=== PATIENT | female | born 1990 ===

== ENCOUNTER 2024-06-28 02:22 | Outpatient (CLI) | payer OTHER, SELFPAY ==
[2024-06-28 11:41] LABS: Abs Immature Grans 0.04 10^3/uL (0.0-0.06); Absolute Basophil Count 0.02 10^3/uL (0.0-0.2); Absolute Eosinophil Count 0.04 10^3/uL (0.0-0.7); Absolute Lymphocyte Count 1.42 10^3/uL (1.2-3.4); Absolute Monocyte Count 0.41 10^3/uL (0.1-0.8); Absolute Neutrophil Count 6.34 10^3/uL (1.2-6.7); Basophils % 0.2 %; Eosinophils % 0.5 %; HCT 32.9 % (36.0-46.0); HGB 11.3 g/dL (11.2-15.7); Immature Grans % 0.5 %; Lymphocytes % 17.2 %; MCH 30.5 pg (27.0-33.0); MCHC 34.3 % (32.0-36.0); MCV 89 fL (80-95); MPV 9.4 fL (8.0-11.0); Neutrophils % 76.6 %; Platelet Count 319 10^3/uL (130-400); RDW 12.1 % (11.7-14.6); RDW-SD 39.1 fL; WBC 8.27 10^3/uL (4.4-10.8)
[2024-06-28 11:55] LABS: Panorama Kit Sent via Fed Ex
[2024-06-28 13:07] LABS: TSH (W/Ref FT4) 1.44 uIU/mL (0.36-3.74)
[2024-06-29 09:35] LABS: HIV-1/2 Ag & Ab Screen Negative (Negative)
[2024-06-29 09:45] LABS: Varicella IgG Antibody Positive (See Note)
[2024-06-29 09:47] LABS: Hepatitis B Surface Ag Negative (Negative)
[2024-06-29 09:49] LABS: Rubella IgG Ab (UVM) Negative (See Note)
[2024-06-29 10:34] LABS: Hepatitis C Ab w Rflx HCV PCR Negative (Negative)
[2024-06-30 21:06] LABS: Syphilis IgG w/Reflex Nonreactive (Nonreactive)
[2024-07-03 03:57] LABS: Specimen WB Whole Blood
[2024-07-08 16:50] LABS: Result Summary NEGATIVE; Specimen WB Whole Blood
== END 2024-06-28 02:23 | disposition home or self-care (01) ==
LOC: LBO 02:22
PROVIDERS: Advanced Practice Midwife; Visit Provider Advanced Practice Midwife
DX: Z34.91 Encounter for supervision of normal pregnancy, unspecified, first trimester (principal); F32.A Depression, unspecified
CPT/HCPCS: 36415; 81220; 81222; 81329; 86787; 86803; 86850; 86900; 86901; 87340; 87389; 84443; 85025; 86762; 86780

== ENCOUNTER 2024-06-28 10:41 | Outpatient (REF) | payer OTHER, SELFPAY ==
--- NOTE | 2024-06-28 10:00 | PAPFT_PTH ---
PATIENT: Vicki Goss LOC: [facility] U#:[id number] AGE/SX: 33/F ROOM: RE06/28/[address]: Minnie Carrero : 1990 BED: DIS: 06/28/2024 SPEC #: [id number] RECD: 06/28/24 13:20 STATUS: IONA REQ #: [id number] GRACY: 06/28/24 10:[address]: Minnie Carrero DEPT: [facility] Cytology RECD BY: Lanie Jacques ENTERED: 06/28/24 13:20 SP TYPE: PAPFT OTHR DR: Unknown,Unknown Tissues: 1 - CX/ENDOCX FOR PAP SMEARS Procedures: PAP THIN PREP/UVM Screening HPV DNA PROBE Comments: [id number] (HPV 16 & 18/45) (CHLAMYDIA/GC)
[2024-06-29 11:58] LABS: Chlamydia Result Negative (Negative); GC Result Negative (Negative)
== END 2024-06-28 10:42 | disposition home or self-care (01) ==
LOC: LBN 10:41
PROVIDERS: Visit Provider Advanced Practice Midwife
DX: Z34.91 Encounter for supervision of normal pregnancy, unspecified, first trimester (principal); Z3A.13 13 weeks gestation of pregnancy
CPT/HCPCS: 87491; 87591; 88142; 87086; 87624

== ENCOUNTER 2024-10-14 03:49 | Outpatient (CLI) | payer OTHER, SELFPAY ==
[2024-10-14 10:30] LABS: HCT 38.2 % (36.0-46.0); HGB 12.5 g/dL (11.2-15.7); MCH 30.5 pg (27.0-33.0); MCHC 32.7 % (32.0-36.0); MCV 93 fL (80-95); MPV 9.8 fL (8.0-11.0); Platelet Count 320 10^3/uL (130-400); RDW 12.2 % (11.7-14.6); WBC 10.37 10^3/uL (4.4-10.8)
[2024-10-14 10:46] LABS: Glucose,1 Hr (Glucola) 130 mg/dL (80-140)
== END 2024-10-14 03:50 | disposition home or self-care (01) ==
PROVIDERS: Visit Provider Advanced Practice Midwife
DX: Z34.93 Encounter for supervision of normal pregnancy, unspecified, third trimester (principal)
CPT/HCPCS: 36415; 82950; 85027

== ENCOUNTER 2024-12-09 10:10 | Outpatient (REF) | payer OTHER, SELFPAY | END 2024-12-09 10:11 | disposition home or self-care (01) | LOC: LBN 10:10 | PROVIDERS: Visit Provider Advanced Practice Midwife | DX: Z34.93 Encounter for supervision of normal pregnancy, unspecified, third trimester (principal) | CPT/HCPCS: 87081 ==

== ENCOUNTER 2024-12-10 06:37 | Outpatient (CLI) | payer OTHER, SELFPAY ==
[2024-12-10 07:47] VITALS: BP 111/72; PULSE 81; TEMP 36.5
[2024-12-10 07:56] VITALS: BP 111/72; PULSE 81
[2024-12-10 08:19] LABS: ROM Plus Positive
--- NOTE | 2024-12-10 09:45 | W.OBNST ---
Date of service: 12/10/24 Time of Service: 09:45 NST Evaluation Reason for NST Reasons for Nonstress Test: OTHER, SEE COMMENT Reason for NST Other: Rule out rupture of membranes Gestational Age Gestational Age in Weeks and Days: 37 Weeks and 0Days Test and Monitor Explained Test/Monitor Explained: Test Explained and Monitor Explained Vital Signs Blood Pressure: 111/72 Pulse: 81 Temperature: 97.7 F Urine Results Urine Protein: Negative Urine Ketones: Negative Urine Glucose: Negative Urine Blood: Negative NST Information Time on Monitor: 07:47 Time off Monitor: 08:38 NST Interventions: None Contraction Frequency: 3-7 NST Evaluation Patient States Movement: Present FHR Baseline: 140 Variability: Moderate 6-25 bpm Accelerations: 15x15 Decelerations: None NST Results: Reactive Note Ultrasound Done: N/A. NST Note Note: Vicki is a at 37wks who presents for evaluation of leaking of fluid which started last evening. No active gushing of fluid, no recent sex, no active bleeding and +FM. Reactive NST with irregular contraction which are mildly painful to Vicki. SSE done, results documented below. Finding support diagnosis of ROM, clear fluid. Cervix appears to be long and closed. I reviewed recommendations for admission and initiation of antiobiotics for GBS unknown status. I reviewed the risks and benefits of antibiotic treatment as well as risks to declination and need for observation x 48hours. We discussed a possible plan of care consistent of expectant management for 12-24 hours and the possibility augmentation if contraction frequency and intensity diminish over time. NST Reviewed and Verified by: Hayley Rivers Specimen Collection Test Type of Specimen Specimen Type: Vaginal Text: ROM Plus Positive, Nitrizine Positive, Ferning positive, pooling negative.
[2024-12-10 09:54] VITALS: BP 111/72; PULSE 81; TEMP 36.5
[2024-12-10 10:50] VITALS: BP 118/71; PULSE 88; RESP 16; TEMP 36.5
== END 2024-12-10 12:07 ==
LOC: BCD 06:38 → OBS 07:11
PROVIDERS: Visit Provider Advanced Practice Midwife
DX: O42.02 Full-term premature rupture of membranes, onset of labor within 24 hours of rupture (principal); Z3A.37 37 weeks gestation of pregnancy
CPT/HCPCS: 84112; 59025

== ENCOUNTER 2024-12-10 12:46 | Inpatient (IN) | payer OTHER, SELFPAY ==
[2024-12-10] VITALS (12 sets, daily range): BP systolic 111–126; BP diastolic 62–79; PULSE 83–104; RESP 16; TEMP 36.5–37; O2SAT 90–98
--- NOTE | 2024-12-10 12:49 | HPE_ITS ---
Date of service: 12/10/24 Time of Service: 12:49 Assessment and Plan Assessment and plan (1) Rupture of membranes with delay of delivery: Status: Acute Assessment and plan: A: 37wk with SROM Cat 1 FHT GBS unknown, PCN ordered P:Admit to Center and routine admission labs. Comfort measures. Intermittent monitoring. Expectant Management until 0100. Nipple stimulation and movement encouraged. Delay SVE until 0100 unless clinically indicated. OB-HPI Labor/Delivery History of Present Illness Reason for Visit: Labor Chief Complaint: Suspected Rupture of Membranes , Associated Signs and Symptoms of Suspected ROM: leaking of fluid. JUDIT Calculator Estimated Delivery Date Method Current WG Current Estimate 12/31/24 LMP (Certain) 37w 0d Other Estimates 12/27/24 Ultrasound #1 37w 4d History of Present Expected Delivery Route/Plan - CNM FOB/boyfriend - Ted Escobar (2 children, ages 4 & 7 from previous relationship) BB yes to circ supports will be FOB & friend/market specialist Zully Interested in waterbirth, dim lights, hypnobirthing, prefers no epidural Rubella non immune, offer vaccine Specific Issues/Plan 1. cfDNA low risk male, SMA negative, CF- neg, Declines AFP 2. History of anxiety- therapist in the past 3. 5-Ps neg Narrative: Vicki is a at 37wk who presents with leaking of fluid since 0100. She reports mild pink-tinged discharge, no recent sex, active movement. Rupture of membranes was confirmed with ROM plus test and positive ferning. She is expecting a Baby Boy and is supporting by boyfrienhiren Jean and plans to have a market specialist present. Her is significant for rubella-non immune status. We reviewed reasons for admission in addition to GBS prophylaxis for unknown status because her testing is pending. We discussed the standard of care and medical indication for augmentation of labor with SROM prior to labor and after informed consent patient and FOB verbalize a plan for expectant management x 24hours. At 0100 on 12/11/24 if patient is not in labor then they will be open to a discussion about augmentation. In the meantime we discussed nipple stimulation and walking to help encourage labor. Informed Consent Informed Consent: Augmentation of Labor, Induction of Labor, Regional Anesthesia and Risk,Benefits,Alternatives Discussed Review of Systems All systems reviewed & are unremarkable except as noted in HPI and below PFSH All Active Problems (Updated 12/10/24 @ 12:59 by Hayley Rivers CNM) Rupture of membranes with delay of delivery (Acute) Rubella non-immune status, antepartum (Acute) (Acute) History of abnormal cervical Pap smear (Acute) Prior low PINKY with positive high risk HPV. Most recently, no evidence of HPV virus. Medical History Anxiety Depression Surgical History H/O adenoidectomy History of tonsillectomy Family History (Updated 08/13/24 @ 11:16 by Minnie Carrero CNM) Maternal Grandmother Breast cancer Father Hypertension Maternal Grandfather Diabetes Heart disease Paternal Grandmother Hyperlipidemia Paternal Grandfather Stroke Social History Smoking/Tobacco Use Status: Never Smoking risk assessment performed?: Yes Alcohol Intake: never Substance use type: does not use Housing: house Female Reproductive History Menstrual Age of Menarche: 15 control method: none History History 1 Para 0 Hx # Term Pregnancies 0 Multiple births 0 Hx # Pregnancies 0 Ectopic pregnancies 0 AB induced 0 Hx Number of Living Children 0 AB spontaneous 0 Meds Allergies and Home Medications Allergies Allergy/AdvReac Type Severity Reaction Status Date / Time Latex, Natural Rubber AdvReac Other (See Verified 12/09/24 09:30 Comment) Home Medications ?Medication ?Instructions ?Recorded ?Confirmed ?Type cholecalciferol (vitamin D3) 10 5,000 unit PO DAILY 10/28/24 12/10/24 History mcg/0.25 mL oral drops vits no.126-ferrous fum 2 tab PO DAILY 10/28/24 12/10/24 History 28 mg iron-folic acid 800 mcg tablet (Classic ) Exam Physical Exam Vital Signs Reviewed: Yes Constitutional Constitutional: no acute distress Detailed Labor and Delivery Exam Mcclure Score: Cervical Points Exam 0 1 2 3 Dilation Closed 1-2cm 3-4 cm 5-6cm Effacement 0-30% 40-50% 60-70% 80% Consistency Firm Medium Soft Station -3 -2 -1,0 +1,+2 Position Posterior Mid Anterior Amniotic Membrane Status: Ruptured (0100) Rupture Method: Spontaneous Amniotic Fluid: Clear Pooling: Negative Nitrazine: Positive Ferning: Present ROM Plus: Positive Monitor Mode: External Contraction Frequency(min): 3-7 Contraction Duration(sec): 50-60 Contraction Intensity: Mild Fetus A Heart Rate Baseline: 135 Monitor Accelerations: 15 X 15 Monitor Decelerations: None Variability: Moderate (6-25 BPM) Categories: Category I Est. Weight: 7 Date of Membrane Rupture: 12/10/24 Time of Membrane Rupture: 01:00 Respiratory Exam Respiratory Exam: Normal Cardiovascular Exam Cardiovascular Exam: Normal Abdominal Exam Abdominal Exam: Normal (gravid, GEORGINA) Extremities Exam Extremities Exam: Normal Neurological Exam Neurological Exam: Normal Psychiatric Exam Psychiatric Exam: Normal Results Results Group Beta Strep: Done-Result Unknown Blood Type: A+ Rubella Status: Nonimmune Varicella Immunity: Immune Risk Assessment Risk for Shoulder Dystocia Historical/Initial OB: NEGATIVE FOR: Pelvic Abnormality, Pre- BMI>30, Previous Shoulder Dystocia or Previous Macrosomia 36 Weeks: NEGATIVE FOR: Current Gestational DM, EFW>4500gms or Maternal Weight Gain>40lbs Delivery Plan @ 36wks: Risk for Pre-Eclampsia Yes, if one or more: NEGATIVE FOR: Hx Pre-E/Gest HTN, Chronic HTN, Multiple Gestation, Pre-gestational DM, Renal Disease, Systemic Lupus or APA Syndrome Yes, if 2 or more: POSITIVE FOR: Nulliparity; NEGATIVE FOR: Age>= 35 yrs, >10yr btwn pregnancies, BMI>30, ethinicty, Mother/Sister w/ Pre-E or Previous IUGR Risk for Post- Hemorrhage Initial: NEGATIVE FOR: Multiple Gestation, Previous PPH, Known Clotting Defi ciency, Grand Multiparity or Anticoagulation 36 Weeks: NEGATIVE FOR: Anemia, hgb<10, Low platelets(thrombocytopenia), Gestational HTN or Pre-E, Polyhydraminios or EFW>4500gms Counseled re: Active Management: Yes Risks Reviewed Risks Reviewed Upon Admission: Yes
[2024-12-10 13:42] LABS: HCT 36.5 % (36.0-46.0); HGB 12.5 g/dL (11.2-15.7); MCH 30.6 pg (27.0-33.0); MCHC 34.2 % (32.0-36.0); MCV 90 fL (80-95); MPV 10.2 fL (8.0-11.0); Platelet Count 275 10^3/uL (130-400); RBC 4.08 10^6/uL (3.93-5.22); RDW 11.9 % (11.7-14.6); RDW-SD 39.2 fL; WBC 12.24 10^3/uL (4.4-10.8)
[2024-12-10] MEDS: Lactated Ringers 1,000 ML 125 ML IV (14:50)
[2024-12-10] MEDS: Penicillin G POT. 5,000,000 UNITS in Normal Saline 100 ML 200 UNITS IVPB (14:52)
[2024-12-10] MEDS: Normal Saline Flush 10 ML SYR IVP ×2 (14:55→23:30)
--- NOTE | 2024-12-10 18:28 | W.PM.OBNL1 ---
Date of service: 12/10/24 Time of Service: 18:28 Informed Consent Informed Consent: Augmentation of Labor, Induction of Labor, Regional Anesthesia and Risk,Benefits,Alternatives Discussed Contractions Monitor Mode: None Contraction Frequency(min): 5-7 Intensity: Mild Fetus A Monitor: Doppler Heart Rate Baseline: 155 Accelerations: Present Decelerations: None Amniotic Membrane Status: Ruptured Assessment and Plan Assessment and plan (1) Rupture of membranes with delay of delivery: Status: Acute Assessment and plan: A: SROM at 37wk GBS unknown, PCN dose 1 infused Early Labor P: Reassess in 2 hours and offer augmentation, if patient declines Plan for augmentation and SVE at 0100 Objective Abnormal lab results 12/10/24 Range/Units 13:30 WBC 12.24 H (4.4-10.8) 10^3/uL Temp Pulse Resp BP Pulse Ox 97.9 F 104 H 16 126/62 97 12/10/24 18:14 12/10/24 18:14 12/10/24 18:14 12/10/24 18:14 12/10/24 18:14 Laboratory Results WBC 12.24 10^3/uL (4.4-10.8) H 12/10/24 13:30 RBC 4.08 10^6/uL (3.93-5.22) 12/10/24 13:30 Hgb 12.5 g/dL (11.2-15.7) 12/10/24 13:30 Hct 36.5 % (36.0-46.0) 12/10/24 13:30 MCV 90 fL (80-95) 12/10/24 13:30 MCH 30.6 pg (27.0-33.0) 12/10/24 13:30 MCHC 34.2 % (32.0-36.0) 12/10/24 13:30 RDW 11.9 % (11.7-14.6) 12/10/24 13:30 Plt Count 275 10^3/uL (130-400) 12/10/24 13:30 MPV 10.2 fL (8.0-11.0) 12/10/24 13:30 ABO/Rh A Positive 12/10/24 13:30 Antibody Screen NEGATIVE 12/10/24 13:30 Subjective Patient Reports: No new Complaints Interval history since last seen: Has been able to rest with FOB. Spoke with Abigail about pumping and was taught how to use breast pump. Ate dinner. Contractions have been continuing, irregular, mild, patient able to talk through them without grimace. Unsure if they are more frequent or intense. Declines augmentation currently. Results Hemoglobin/Hematocrit: Hgb 12.5 g/dL (11.2-15.7) 12/10/24 13:30 Hct 36.5 % (36.0-46.0) 12/10/24 13:30 Abnormal Lab Findings: Abnormal Labs 12/10/24 13:30 WBC 12.24 H
[2024-12-10] MEDS: Penicillin G POT. 3,000,000 UNITS in Normal Saline 50 ML 100 UNITS IVPB ×2 (19:27→23:49)
--- NOTE | 2024-12-10 21:17 | W.PM.OBNL1 ---
Date of service: 12/10/24 Time of Service: 21:17 Informed Consent Informed Consent: Augmentation of Labor, Induction of Labor, Regional Anesthesia and Risk,Benefits,Alternatives Discussed Contractions Contraction Frequency(min): 3-5 Fetus A Monitor: Doppler Heart Rate Baseline: 135 Characteristics: Normal Accelerations: Present Amniotic Membrane Status: Ruptured Assessment and Plan Assessment and plan (1) Rupture of membranes with delay of delivery: Status: Acute Assessment and plan: A: SROM x 20 hours Cat 1 FHT Afebrile P: SVE and assessment at 0100, 24hr post ROM Augmentation with Misoprostol planned Objective Abnormal lab results 12/10/24 Range/Units 13:30 WBC 12.24 H (4.4-10.8) 10^3/uL Temp Pulse Resp BP Pulse Ox 98.6 F 90 16 111/71 98 12/10/24 21:02 12/10/24 21:02 12/10/24 21:02 12/10/24 21:02 12/10/24 21:02 Laboratory Results WBC 12.24 10^3/uL (4.4-10.8) H 12/10/24 13:30 RBC 4.08 10^6/uL (3.93-5.22) 12/10/24 13:30 Hgb 12.5 g/dL (11.2-15.7) 12/10/24 13:30 Hct 36.5 % (36.0-46.0) 12/10/24 13:30 MCV 90 fL (80-95) 12/10/24 13:30 MCH 30.6 pg (27.0-33.0) 12/10/24 13:30 MCHC 34.2 % (32.0-36.0) 12/10/24 13:30 RDW 11.9 % (11.7-14.6) 12/10/24 13:30 Plt Count 275 10^3/uL (130-400) 12/10/24 13:30 MPV 10.2 fL (8.0-11.0) 12/10/24 13:30 ABO/Rh A Positive 12/10/24 13:30 Antibody Screen NEGATIVE 12/10/24 13:30 Subjective Interval history since last seen: Did not start nipple stimulation. Desires to rest now. Maintaining good PO hydration and voiding as needed. Reviewed again risk of declining augmentation to include prolonged labor, hemorrhage, chorioamnionitis, section, maternal exhaustion, distress. At this point we are planning SVE at 0100 and likely using misoprostol as augmentation agent. Results Hemoglobin/Hematocrit: Hgb 12.5 g/dL (11.2-15.7) 12/10/24 13:30 Hct 36.5 % (36.0-46.0) 12/10/24 13:30 Abnormal Lab Findings: Abnormal Labs 12/10/24 13:30 WBC 12.24 H
[2024-12-11] VITALS (22 sets, daily range): BP systolic 94–129; BP diastolic 54–78; PULSE 75–97; RESP 16–17; TEMP 36.6–36.8; O2SAT 96–99; BMI 31.5
--- NOTE | 2024-12-11 02:27 | W.PM.PROGNOT ---
Date of Service Date of service: 12/11/24 Time of Service: 02:27 Objective Last Vital Signs Temp 98.2 F 12/10/24 23:30 Pulse 90 12/10/24 21:02 Resp 16 12/10/24 21:02 BP 111/71 12/10/24 21:02 Pulse Ox 98 12/10/24 21:02 Laboratory Results - last 24 hr 12/10/24 13:30 WBC 12.24 H RBC 4.08 Hgb 12.5 Hct 36.5 MCV 90 MCH 30.6 MCHC 34.2 RDW 11.9 Plt Count 275 MPV 10.2 ABO/Rh A Positive Antibody Screen NEGATIVE Objective Narrative Objective Narrative: Called to patient's room for concerns for breech presentation. LBSUS confirms breech presentation. 34yo at 37 weeks, presented to L&D for rupture of membranes as of 1 am last night. She has been expectantly managed throughout the day and recently began to have regular contractions. She had declined SVE until recently, when she was found to be 2 / 100 / -3, but also incidentally breech (confirmed on bedside US). I spoke with the patient at length regarding the risks and benefits of section. We discussed that risks include, but are not limited to, bleeding, infection, blood clots to the legs and to the lungs, damage to surrounding tissues as well as risks associated with anesthesia and unforseen complications. She is agreeable to blood products in the event they are necessary. Questions answered to patient and her 's satisfaction. Consented for section for breech presentation with blood products as needed. Time Spent with Patient Time Spent with Patient: 35-49 minutes Time was spent: preparing to see the patient(eg.review tests), obtaining and/or reviewing separately otained hiistory, ordering medications,tests, procedures, referring, communicating with other health day care center director, indepentently interpreting results, counseling the patient and care coordination
--- NOTE | 2024-12-11 02:30 | W.PM.OBNL1 ---
Date of service: 12/11/24 Time of Service: 01:00 Informed Consent Informed Consent: Augmentation of Labor, Induction of Labor, Regional Anesthesia and Risk,Benefits,Alternatives Discussed Pelvic Exam Dilation: 2.5 Effacement (%): 100 station: -3 Position: Other Consistency: soft Vaginal Exam Presentation: Unknown Comments: Bedside ultrasound Contractions Contraction Frequency(min): 2 Intensity: Moderate Fetus A Monitor: Doppler Heart Rate Baseline: 135 Presentation: Donavan Breech Accelerations: Present Decelerations: None Amniotic Membrane Status: Ruptured Assessment and Plan Assessment and plan (1) Breech presentation: Status: Acute Assessment and plan: A: Breech presentation P: MD at [facility] to consent to surgery. Plan to support in OR Objective Abnormal lab results 12/10/24 Range/Units 13:30 WBC 12.24 H (4.4-10.8) 10^3/uL Temp Pulse Resp BP Pulse Ox 98.2 F 90 16 111/71 98 12/10/24 23:30 12/10/24 21:02 12/10/24 21:02 12/10/24 21:02 12/10/24 21:02 Laboratory Results WBC 12.24 10^3/uL (4.4-10.8) H 12/10/24 13:30 RBC 4.08 10^6/uL (3.93-5.22) 12/10/24 13:30 Hgb 12.5 g/dL (11.2-15.7) 12/10/24 13:30 Hct 36.5 % (36.0-46.0) 12/10/24 13:30 MCV 90 fL (80-95) 12/10/24 13:30 MCH 30.6 pg (27.0-33.0) 12/10/24 13:30 MCHC 34.2 % (32.0-36.0) 12/10/24 13:30 RDW 11.9 % (11.7-14.6) 12/10/24 13:30 Plt Count 275 10^3/uL (130-400) 12/10/24 13:30 MPV 10.2 fL (8.0-11.0) 12/10/24 13:30 ABO/Rh A Positive 12/10/24 13:30 Antibody Screen NEGATIVE 12/10/24 13:30 Subjective Interval history since last seen: visibly much more uncomfortable, contractions every 2 minutes, breathing through contractions, using comb for accupressure, consent to SVE, 2.5/100/-3. Bedside ultrasound requested, breech confirmed, LSA with head on maternal left. MD called to bedside to consent for . Patient and FOB taking news very well. Results Hemoglobin/Hematocrit: Hgb 12.5 g/dL (11.2-15.7) 12/10/24 13:30 Hct 36.5 % (36.0-46.0) 12/10/24 13:30 Abnormal Lab Findings: Abnormal Labs 12/10/24 13:30 WBC 12.24 H Pocus Exam Limited OB Exam DATE OF EXAM:: 12/11/24 TIME OF EXAM:: 01:06 PROVIDER THAT PERFORMED THE STUDY: Hayley Rivers IS THIS A REPEAT EXAM DURING THIS ENCOUNTER: No Type of Exam: Pelvic OB Trans Abdominal REASON FOR EXAM: other indication: position check Exam Complete. DIFFERENTAL DIAGNOSES: breech presentation, vertex in LUQ
[2024-12-11] MEDS: Lactated Ringers 1,000 ML 200 ML IV (02:51)
[2024-12-11] MEDS: AZITHROMYCIN 500 MG in Normal Saline 250 ML 250 MG IVPB (02:51)
[2024-12-11] MEDS: Azithromycin 500 MG VIAL (03:00)
--- NOTE | 2024-12-11 03:04 | ANES.PREOP_ITS ---
General Info Date of Service Date Performed: 12/11/24 Height: 4 ft 11 in Weight: 70.76 kg Body Mass Index (BMI): 31.5 Surgical Procedure: Operation Date: 12/11/24 02:40 Proposed Procedure Side Surgeon p Section Natalya Saenz, Meds Allergies and Home Medications Allergies Allergy/AdvReac Type Severity Reaction Status Date / Time Latex, Natural Rubber AdvReac Other (See Verified 12/09/24 09:30 Comment) Home Medication ?Medication ?Instructions ?Recorded cholecalciferol (vitamin D3) 10 5,000 unit PO DAILY 10/28/24 mcg/0.25 mL oral drops vits no.126-ferrous fum 2 tab PO DAILY 10/28/24 28 mg iron-folic acid 800 mcg tablet (Classic ) Current Visit Medications: Current Medications Generic Name Dose Route Start Last Admin Trade Name Freq PRN Reason Stop Dose Admin Citric Acid/Sodium Citrate 30 ml 12/11/24 03:00 Sodium Citrate 30 Ml Cup PO PREOP SELVIN Ringer's Solution 1,000 mls @ 125 mls/hr 12/10/24 13:00 12/10/24 22:50 IV Infused INFUSION SELVIN Infusion Penicillin G Potassium 3,000, 50 mls @ 100 mls/hr 12/10/24 19:00 12/11/24 00:19 000 units/ Sodium Chloride IVPB Infused Q4H SELVIN Infusion Cefazolin Sodium/Dextrose 2 gm in 50 mls @ 100 mls/hr 12/11/24 02:30 Ancef Duplex IVPB PREOP SELVIN Azithromycin 500 mg/ Sodium 250 mls @ 250 mls/hr 12/11/24 02:30 12/11/24 02:51 Chloride IVPB 250 mls/hr PREOP SELVIN Administration Ringer's Solution 1,000 mls @ 200 mls/hr 12/11/24 02:30 12/11/24 02:51 IV 200 mls/hr INFUSION SELVIN Administration Cefazolin Sodium 3,000 mg/ 100 mls @ 200 mls/hr 12/11/24 02:30 Sodium Chloride IVPB PREOP SELVIN IV Miscellaneous Supplies 1 each 12/10/24 13:00 Iv Access IV DIRECTED SELVIN IV Miscellaneous Supplies 1 each 12/11/24 02:30 Iv Access IV DIRECTED SELVIN Sodium Chloride 0 ml 12/10/24 12:46 12/10/24 14:55 Normal Saline Flush 10 Ml Syr IVP 10 ml PRN PRN Administration Sodium Chloride 0 ml 12/10/24 20:00 12/10/24 23:30 Normal Saline Flush 10 Ml Syr IVP 10 ml BID SELVIN Administration Sodium Chloride 0 ml 12/10/24 12:46 Normal Saline 10 Ml Vial IJ DIRECTED PRN Sodium Chloride 0 ml 12/11/24 02:28 Normal Saline 10 Ml Vial IJ DIRECTED PRN PFSH Active Problems Active Problems: Problem Status Onset Code Breech presentation Acute O32.1XX0 Rupture of membranes with delay of delivery Acute O42.90 Rubella non-immune status, antepartum Acute O09.899, Z28.39 Acute Z34.90 History of abnormal cervical Pap smear Acute Z87.42 Medical History Medical History Anxiety Depression Surgical History Surgical History H/O adenoidectomy History of tonsillectomy Tobacco Smoking/Tobacco Use Status: Never Alcohol Alcohol Intake: never Substance Use Substance use type: does not use Prental History History 2 1 Para 0 Hx # Term Pregnancies 0 Multiple births 0 Hx # Pregnancies 0 Ectopic pregnancies 0 AB induced 0 Hx Number of Living Children 0 AB spontaneous 0 Vital Signs and Lab Results Vital Signs Most Recent Vital Signs in EMR: Most Recent Vital Signs Temp Pulse Resp BP Pulse Ox 36.8 C 90 16 111/71 98 12/10/24 23:30 12/10/24 21:02 12/10/24 21:02 12/10/24 21:02 12/10/24 21:02 Lab Results 12/10/24 13:30 Blood Type / Crossmatch: 2 Antibody Screen NEGATIVE 12/10/24 Complete Blood Count: 2 White Blood Count 12.24 10^3/uL (4.4-10.8) H 12/10/24 13:30 Red Blood Count 4.08 10^6/uL (3.93-5.22) 12/10/24 13:30 Hemoglobin 12.5 g/dL (11.2-15.7) 12/10/24 13:30 Hematocrit 36.5 % (36.0-46.0) 12/10/24 13:30 Platelet Count 275 10^3/uL (130-400) 12/10/24 13:30 Complete Metabolic Panel: 2 No Data to Display Liver Function Panel: 2 No Data to Display Coagulation Panel: 2 No Data to Display Cardiac Panel: 2 No Data to Display Arterial Blood Gas: 2 No Data to Display Venous Blood Gas: 2 No Data to Display Pancreas Panel: 2 No Data to Display Thyroid Panel: 2 No Data to Display Infectious Disease: 2 No Data to Display Blood Cultures: 2 No Data to Display Toxicology Panel: 2 No Data to Display Panel: 2 No Data to Display Anesthesia Assessment and Plan Anesthesia History Personal History: No History of Anesthesia Complications Family History: No Family History of Anesthesia Complications Exercise Tolerance Exercise Tolerance: Metabolic Equivalents>4 Pertinent Negatives Pertinent Negatives: No Symptoms of GERD, No Major Cardiovascular Symptoms or Complaints, No Major Pulmonary Symptoms or Complaints and No History of CVA/TIA Cardiac & Pulmonary Exam Cardiac Exam: Normal S1/S2 Heart Sounds Pulmonary Exam: Clear Bilateral Breath Sounds Implantable Cardiac Device Does patient have a Pacemaker or an ICD?: No Airway Exam Known Difficult Airway: No Mallampati Class: 2 Mouth Opening: Normal (> 3cm) Thyromental Distance: Greater than 3 cm Neck Range of Motion: Full ROM Neck Circumference: Normal Teeth Condition: Normal Dentition ASA Classification ASA Score: ASA 2 Emergency Case?: No NPO Status NPO Status: NPO Clears >2 hours, Solids >8 hours Status Status: Confirmed Anesthesia Plan Resuscitation Status: Full Code Anesthesia Technique: Spinal Anesthesia Airway Planned: Natural Airway Monitors Used: Standard Monitors
[2024-12-11] MEDS: ceFAZolin 2 GM/50 ML BAG 50 GM (03:43)
--- NOTE | 2024-12-11 04:47 | PDOC.OPNB_ITS ---
Date of service: 12/11/24 Time of Service: 04:48 Operative Note Operative Note Delivery Method: Unscheduled STAT: No and Primary NTSV>37 Weeks: No DATE OF PROCEDURE: 12/11/24 PRE-OP DIAGNOSES: 34 yo at 37 weeks gestation; breech presentation; SROM POST-OP DIAGNOSES: same (except for the following:) s/p primary low transverse section PROCEDURE: primary low transverse section SURGEON: Natalya Saenz Freight Sorter: Cande Yuan Anesthesia: spinal Estimated blood loss (mL): 1,100 Pathology: none sent Complications: None Patient was transported to: floor Patient's condition: stable Indications: 34 yo presented to L&D the morning of 12/10/2024 with complaints of leakage. She was diagnosed with rupture of membranes. She was expectantly managed per patient request and declined SVE. She began to become uncomfortable and show evidence of labor over the course of the night, and when she ultaimtely agreed to an exam, she was found to be in breech presentation, which was confirmed on US. She was consented for section. Findings: Unremarkable anatomy. Viable male infant in daron breech presentation. Meconium fluid. Normal fallopian tubes and ovaries. Procedure Description: Patient was taken to the OR with IV fluids running. She received 2 g of Ancef for surgical prophylaxis, and 500 mg of azithromycin was ordered to be given fo llowing umbilical cord clamping. Spinal anesthesia was established. The patient was leaned back onto the table and supine position with her arms outstretched on arm boards. Her vagina was prepped with Betadine and a Diaz was placed using sterile technique. Her abdomen was then prepped with chlorhexidine and allowed to dry for 3 minutes. Sterile dressings were placed, and testing of the levels of the spinal found anesthesia to be adequate. Pfannenstiel incision was marked with surgical pen and the skin was incised with a #10 blade. The incision was carried down to the level of the fascia using Bovie cautery the fascia was incised in the midline with Bovie, and the incision was carried laterally using curved scissors. The superior leaf of fascia was tented up using Thea's and the underlying rectus muscle was dissected off with combination of blunt and sharp dissection. The same was then done for the inferior leaf of fascia. The midline of the rectus was identified and bluntly to reveal the underlying peritoneum. The peritoneum was tented up with stats. Following assurance that there was no underlying bowel, the peritoneum was incised with Metzenbaum scissors. The defect in the peritoneum was then expanded using traction. A well-developed lower uterine segment was appreciated in the superior margin the bladder was sufficiently low. A large Thierno O retractor was placed. A low transverse uterine incision was then created using a new #10 blade. The defect in the uterus was then modestly expanded using traction; moderate, meconium colored fluid was appreciated. The baby's bottom was secured and the legs were delivered first, the rest of the body was delivered in a traditional breech fashion without issue. The baby was immediately vigorous. Mouth and nose were bulb suctioned, and cord was double clamped and cut by the physician. The baby was handed off to the awaiting credit and collections representative using sterile technique. Next, cord blood was collected and set aside. The placenta was carefully removed in its entirety, and a sweep of the uterine cavity with a clean sponge assure no remnants. Pitocin was initiated. The uterus was then externalized; a prominent pumping vessel was noted along the left lateral superior margin. This was clamped with a Juarez to control bleeding. The uterine incision was closed first with a running locked stitch of 0 Vicryl, and next within running, locked, imbricating layer of 0 Vicryl. A persistent area of bleeding was noted at the midline of the incision and quickly addressed with a [id number] of 0 Vicryl. With this, good hemostasis was noted. Over the course of the repair, the uterus was noted to be moderately boggy, and anesthesia began a quicker infusion of the Pitocin. This seemed to resolve the bogginess. Following closure of the hysterotomy, the uterus was returned to the abdominal cavity without issue. Interrogation of the hysterotomy confirmed good hem ostasis. The Thierno O retractor was removed, and the peritoneum was secured with a series of stats. The peritoneum was then closed with a running 3-0 Vicryl. The rectus was investigated and no bleeding was appreciated. The fascia was closed with a running 0 Vicryl suture. The subcutaneous tissue was investigated and no bleeding was appreciated. The subcutaneous tissues were closed with a running 3-0 Vicryl. The skin was then closed with 3-0 Vicryl. Lidocaine was then injected along the incision, and clean dressings were applied. The patient tolerated the procedure well. Mother and baby were brought upstairs back to labor and delivery. Gender: Male
[2024-12-11] MEDS: Lactated Ringers 1,000 ML 125 ML IV (07:15)
[2024-12-11] MEDS: Normal Saline Flush 10 ML SYR IVP ×2 (10:00→22:00)
[2024-12-11] MEDS: Ketorolac 30 MG/ML VIAL IVP ×3 (10:19→21:51)
[2024-12-11] MEDS: Normal Saline 10 ML VIAL IJ (10:19)
--- NOTE | 2024-12-11 13:26 | W.PM.OBPNV1 ---
Date of service: 12/11/24 Time of Service: 08:30 Assessment and Plan Assessment and plan (1) delivery delivered: Status: Acute Assessment and plan: Caring for baby independently. Pain is managed well with IV analgesics. Diaz catheter in place and due to be removed today A - stable mother and baby post delivery Day 1 P - Routine care, education given (2) Lactating mother: Status: Acute Subjective Subjective Interval history: POD #1 Sleep: mom FOB and baby all slept after delivery for a few hours, desires daytime nap after visitors come Bleeding/Pain: moderate without clots, getting IV toradol, duramorph spinal during surgery : producing lots of colostrum, hand expressing and attempting to latch, educated on positioning and on-demand feeding Moods: tired but happy and strong bonding observed Support: Ted at bedside, step-children to visit today Patient comments: No complaints and Pain well controlled [place] baby status: Doing well, Nursing well and Strong Bonding Observed [place] feeding status: Exclusively breast feeding and Pipette Feeding Exam Physical Exam Vital signs: Temp Pulse Resp BP Pulse Ox 98.2 F 75 17 122/77 99 12/11/24 09:09 12/11/24 09:09 12/11/24 10:00 12/11/24 09:09 12/11/24 09:09 Breast Exam Bilateral: Breast Exam: Soft Nipple Exam: Normal (tender, everted, +colostrum) and Uninjured Fundal Exam Fundus: Below Umbilicus and Firm Exam Comments: lochia moderate rubra without clots. Diaz catheter in place Neurological Exam Neurological Exam: Normal (spinal wearing off, mobility improving, Diaz catheter in place) Results Hemoglobin/Hematocrit: Hgb 12.5 g/dL (11.2-15.7) 12/10/24 13:30 Hct 36.5 % (36.0-46.0) 12/10/24 13:30 Abnormal Lab Findings: Abnormal Labs 12/10/24 13:30 WBC 12.24 H
[2024-12-12] VITALS (7 sets, daily range): BP systolic 90–113; BP diastolic 64–73; PULSE 64–110; RESP 16–18; TEMP 36.5–36.9; O2SAT 98–99
[2024-12-12] MEDS: Acetaminophen 325 MG TAB 650 MG PO ×3 (01:38→11:30)
[2024-12-12] MEDS: Ibuprofen 600 MG TAB PO ×2 (05:41→11:30)
[2024-12-12 06:55] LABS: Abs Immature Grans 0.06 10^3/uL (0.0-0.06); Absolute Eosinophil Count 0.06 10^3/uL (0.0-0.7); Absolute Lymphocyte Count 1.84 10^3/uL (1.2-3.4); Absolute Neutrophil Count 9.15 10^3/uL (1.2-6.7); Basophils % 0.3 %; Eosinophils % 0.5 %; HCT 27.6 % (36.0-46.0); Immature Grans % 0.5 %; Lymphocytes % 15.5 %; MCH 29.9 pg (27.0-33.0); MCHC 32.6 % (32.0-36.0); MCV 92 fL (80-95); MPV 10.4 fL (8.0-11.0); Monocytes % 6.1 %; Neutrophils % 77.1 %; Platelet Count 219 10^3/uL (130-400); RBC 3.01 10^6/uL (3.93-5.22); RDW 12.2 % (11.7-14.6); RDW-SD 40.9 fL; WBC 11.87 10^3/uL (4.4-10.8)
[2024-12-12 06:56] LABS: Absolute Basophil Count 0.04 10^3/uL (0.0-0.2); Absolute Monocyte Count 0.72 10^3/uL (0.1-0.8)
--- NOTE | 2024-12-12 09:37 | W.ANESPOSTOP ---
Postoperative Evaluation Date, Time and Location Date Performed: 12/12/24 Time Performed: 09:37 Patient Location: Obstetrics Vital Signs Most Recent Imported Vital Signs: Most Recent Vital Signs Temp Pulse Resp BP Pulse Ox 36.7 C 64 16 97/68 L 98 12/12/24 00:00 12/12/24 00:00 12/12/24 03:00 12/12/24 00:00 12/12/24 00:00 Pain Score Most Recent Pain Score: Most Recent Pain Score Pain Level 3 12/12/24 03:00 Assessment Mental Status: Awake (Alert & Oriented to Patient Baseline) Airway and Respiratory Function: Patent airway with normal (patient baseline) respiratory exam Cardiovascular Function: Hemodynamically Stable Hydration Status: Adequately Hydrated Nausea & Vomiting: No Nausea or Vomiting Pain: Pain is tolerable per patient Peripheral Nerve Block: Other (Epidural appropriately resolved, denied complaint, denied headache, denied backpain. Per RN catheter removed with tip intact.) Postoperative Comments:: Discussed analgesics/opioids and . Discussed pain control in general. Dr. Frye at bedside and I asked him to address the questions related to breast feeding from a pediatrics perspective, but I did reinforce that if feeling clear headed we do not feel there is enough circulating medication to reach baby in a meaningful way.
--- NOTE | 2024-12-12 11:03 | W.PM.OBPNV1 ---
Date of service: 12/12/24 Time of Service: 11:04 Assessment and Plan Assessment and plan (1) delivery delivered: Status: Acute Assessment and plan: Anticipate delivery tomorrow (2) Lactating mother: Status: Acute Subjective Subjective Interval history: Walking around the labor floor with ease, some feelings of numbness at the incision site, bandage still in place. No BM yet, would like to take Colace. Breasts filling, prominent venation. Processing news of hip dislocation out loud. NB to have circumcision this morning Patient comments: No complaints, Pain well controlled, Incisional pain, Tolerating diet and Flatus present baby status: Nursing well, Rooming in and Strong Bonding Observed [place] feeding status: Exclusively breast feeding Exam Physical Exam Vital signs: Temp Pulse Resp BP Pulse Ox 98.2 F 110 H 17 90/64 L 99 12/12/24 10:35 12/12/24 10:35 12/12/24 10:35 12/12/24 10:35 12/12/24 10:35 Vital Signs Reviewed: Yes Results Hemoglobin/Hematocrit: Hgb 9.0 g/dL (11.2-15.7) L D 12/12/24 06:46 Hct 27.6 % (36.0-46.0) L 12/12/24 06:46 Abnormal Lab Findings: Abnormal Labs 12/10/24 12/12/24 13:30 06:46 WBC 12.24 H 11.87 H RBC 3.01 L Hgb 9.0 L D Hct 27.6 L Absolute Neutrophils 9.15 H
[2024-12-12] MEDS: Docusate Sodium 100 MG CAP PO (11:30)
--- NOTE | 2024-12-12 13:03 | OBPPV_ITS ---
Date of service: 12/12/24 Time of Service: 12:48 Assessment and Plan Assessment and plan (1) delivery delivered: Status: Acute Assessment and plan: 34 yo G1 now P1001 s/p 37 wk primary low transverse section on 12/11/2024 AM for breech presentation - Rh+ / Rub NI / VZV I / GBS neg - Admitted 12/10 for PROM. Did not receive induction agent or augmentation. Did not receive an epidural (but did get a spinal for ). - Peripartum course uncomplicated - Intrapartum course complicated by breech presentation - course uncomplicated - Meeting all milestones - Lochia appropriate - Incision C/D/I - without issue - Denies any concerns for depression; discussed warning signs and encouraged low threshold for seeking immediate medical evaluation - Discussed addictive potential of narcotics and encouraged favoring non- narcotics for pain control, and appropriate disposal of unneeded narcotics - Contraception: pending; provided with information - Discharge: pending (2) Acute anemia: Status: Acute Assessment and plan: - Hgb 12.5 (12/10) to 9 (12/12) - Asymptomatic - Vital signs are stable - Daily PO iron encouraged Subjective Subjective Narrative: PPD 1 s/p 37 week low transverse section for breech presentation. She reports feeling well. Pain is appropriately controlled. She is ambulating, urinating, eating, and passing gas all without issue. She is . Lochia is appropriate. Exam Physical Exam Vital signs: Temp Pulse Resp BP Pulse Ox 98.2 F 110 H 17 90/64 L 99 12/12/24 10:35 12/12/24 10:35 12/12/24 10:35 12/12/24 10:35 12/12/24 10:35 Constitutional Constitutional: no acute distress HEENT Exam HEENT Exam: Normal Detailed Respiratory Exam Comments: unlabored breathing Abdominal Exam Comments: soft, non-distended, appropriately tender. Incision is C/D/I. Fundal Exam Comment: fundus is firm and below the umbilicus Extremities Exam Comment: +1 lower extremity edema noted equally and bilaterally, consistent with state. Detailed Skin Exam Comments: no overt skin pathology Detailed Neurological Exam Neurological: Present alert and oriented X3 DetailedPsychiatric Exam Psych Exam: Normal Affect, Cooperative, Good Insight and Good Judgement Results Hemoglobin/Hematocrit: Hgb 9.0 g/dL (11.2-15.7) L D 12/12/24 06:46 Hct 27.6 % (36.0-46.0) L 12/12/24 06:46 Abnormal Lab Findings: Abnormal Labs 12/10/24 12/12/24 13:30 06:46 WBC 12.24 H 11.87 H RBC 3.01 L Hgb 9.0 L D Hct 27.6 L Absolute Neutrophils 9.15 H
[2024-12-13] MEDS: Ibuprofen 600 MG TAB PO ×3 (00:19→18:36)
[2024-12-13] MEDS: Acetaminophen 325 MG TAB 650 MG PO ×4 (00:20→18:35)
[2024-12-13 03:00] VITALS: BP 96/59; PULSE 74; RESP 18; TEMP 36.6
[2024-12-13 06:33] VITALS: BP 116/59; PULSE 78; RESP 18; TEMP 36.6
--- NOTE | 2024-12-13 08:02 | W.PM.OBDISCH ---
Date of service: 12/13/24 Time of Service: 08:02 DS: Diagnosis Discharge Diagnosis (1) delivery delivered: Status: Acute (2) Acute anemia: Status: Acute Discharge Plan Disposition Condition: Good Discharge Details Reason For Visit: Labor Admit Date/Time: 12/10/24 13:13 Admit Provider: Minnie Carrero Attending Provider: Minnie Carrero Primary Care Provider: Unknown,Unknown Hospital Course Hospital Course: Ms. Goss presented to L&D on 12/10/2024 ruptured to clear fluid. She was expectantly managed per patient request. Once she entered active labor, she was noted to be in breech presentation and was consented for section. She underwent a 37 week primary low transverse section on 12/11/2024 and her baby was noted to be in daron breech presentation. Her recovery was notable for anemia, though she remained asymptomatic and vitals were stable. Today, she is found doing well. She is meeting all milestones and lochia has remained appropriate. Pain is appropriately controlled without narcotics. She asked several good questions which were answered to her satisfaction. She was counseled on pelvic rest and wound care. She declines contraception at this time and will plan for incision check at one week. Home Meds and New Rx's Prescriptions: No Action Classic 28 mg iron- 800 mcg tablet 2 tab PO DAILY Patient Comments: Gigi brand cholecalciferol (vitamin D3) 10 mcg/0.25 mL drops 5,000 unit PO DAILY Discharge Instructions Instructions: (DC), Circumcision, (DC) Activity:: Nothing inserted vaginally, including sexual intercourse, for 8 weeks Equipment/Supplies:: No Equipment Needed Diet:: Normal Diet Discharge Data Discharge Physician: Natalya Saenz OB:DS Summary Summary Episiotomy Description: None Laceration Description: None Laceration Extension: N/A Contraception Discussed Contraception Discussed: Yes, Gender-Baby A: Male weight: 6 lb 11.762 oz Status at Discharge Functional status at discharge: independent ambulation Overall status at discharge: patient is back to baseline Mental Status: mental status grossly normal Speech and Movement: speech and movement normal Mood: congruent mood Affect: normal affect Quality:SDOH Health Related Social Needs: No Data to Display Exam Physical Exam Vital signs: Temp Pulse Resp BP Pulse Ox 97.8 F 78 18 116/59 L 99 03/24/25 06:33 12/13/24 06:33 12/13/24 06:33 12/13/24 06:33 12/12/24 14:40 Constitutional Constitutional: no acute distress HEENT Exam HEENT Exam: Normal Detailed Respiratory Exam Comments: unlabored breathing Abdominal Exam Comments: soft, non-distended, appropriately tender. Incision is C/D/I. Fundal Exam Comment: fundus is firm and below the umbilicus Extremities Exam Comment: +1 lower extremity edema noted equally and bilaterally, consistent with state. Detailed Skin Exam Comments: no overt skin pathology Detailed Neurological Exam Neurological: Present alert and oriented X3 DetailedPsychiatric Exam Psych Exam: Normal Affect, Cooperative, Good Insight and Good Judgement PFSH All Active Problems (Updated 12/12/24 @ 13:04 by Natalya Saenz DO) Acute anemia (Acute) Lactating mother (Acute) delivery delivered (Acute) Breech presentation (Acute) Rubella non-immune status, antepartum (Acute) History of abnormal cervical Pap smear (Acute) Prior low PINKY with positive high risk HPV. Most recently, no evidence of HPV virus. Medical History (Updated 12/12/24 @ 13:04 by Natalya Saenz DO) Rupture of membranes with delay of delivery Anxiety Depression Surgical History H/O adenoidectomy History of tonsillectomy Family History (Updated 08/13/24 @ 11:16 by Minnie Carrero CNM) Maternal Grandmother Breast cancer Father Hypertension Maternal Grandfather Diabetes Heart disease Paternal Grandmother Hyperlipidemia Paternal Grandfather Stroke Social History Smoking/Tobacco Use Status: Never Smoking risk assessment performed?: Yes Alcohol Intake: never Substance use type: does not use Housing: house Female Reproductive History Menstrual Age of Menarche: 15 control method: none History History 1 Para 0 Hx # Term Pregnancies 0 Multiple births 0 Hx # Pregnancies 0 Ectopic pregnancies 0 AB induced 0 Hx Number of Living Children 0 AB spontaneous 0 DS: Data Vitals/I&O Vitals and I&O: Vital Signs Temperature 97.8 F 12/13/24 06:33 Temperature Source Oral 12/13/24 06:33 Pulse 78 12/13/24 06:33 Pulse Rhythm Regular 12/12/24 20:05 Respiratory Rate 18 12/13/24 06:33 Respiratory Depth Normal 12/12/24 10:34 Blood Pressure 116/59 L 12/13/24 06:33 Blood Pressure Mean 78 12/13/24 06:33 Pulse Oximetry 99 12/12/24 14:40 Oxygen Delivery Method Room Air 12/10/24 13:28 Oxygen Flow Rate 0 12/10/24 13:28 Pain Level 3 12/13/24 06:27 Intake & Output 12/12/24 12/12/24 12/13/24 11:59 23:59 11:59 Output Total 1050 / 1050 Balance -1050 / -1050 Output: Urine 1050 / 1050 Other: Urine Color Yellow Pale Straw Light Yulissa Urine Appearance Clear Urine Odor None Comment voids complete from mustafa removal
[2024-12-13 09:35] VITALS: BP 128/76; PULSE 82; RESP 16; TEMP 36.8
[2024-12-13 13:30] VITALS: BP 119/92; PULSE 101; RESP 16
[2024-12-13] MEDS: Measles, Mumps, & Rubella Vaccine 0.5 ML VIAL SC (16:15)
[2024-12-13 18:35] VITALS: TEMP 36.4
[2024-12-14] MEDS: Ibuprofen 600 MG TAB PO ×3 (02:20→14:28)
[2024-12-14] MEDS: Acetaminophen 325 MG TAB 650 MG PO ×3 (02:20→14:27)
[2024-12-14 07:35] VITALS: BP 115/82; PULSE 96; RESP 16; TEMP 36.7; O2SAT 99
[2024-12-14] MEDS: Docusate Sodium 100 MG CAP PO (08:48)
[2024-12-14 11:30] VITALS: BP 117/80; PULSE 91; RESP 16; TEMP 36.7; O2SAT 99
== END 2024-12-14 14:35 | disposition home or self-care (01) | DRG 788 ==
LOC: OBS 12-13 13:05 → BCD 12-13 13:06 → OBS 12-13 13:06
PROVIDERS: Advanced Practice Midwife; Obstetrics & Gynecology; Admitting Provider Advanced Practice Midwife; Visit Provider Advanced Practice Midwife
PROC: 10D00Z1 Extraction of Products of Conception, Low, Open Approach (ICD-10-PCS; CPT 59514; principal; 2024-12-11 02:40)
DX: O42.02 Full-term premature rupture of membranes, onset of labor within 24 hours of rupture (principal); O32.1XX0 Maternal care for breech presentation, not applicable or unspecified; O90.81 Anemia of the puerperium; Z37.0 Single live birth; Z3A.37 37 weeks gestation of pregnancy; O99.344 Other mental disorders complicating childbirth; F41.8 Other specified anxiety disorders; O77.0 Labor and delivery complicated by meconium in amniotic fluid; D64.9 Anemia, unspecified
CPT/HCPCS: 59514; 36415; 85027; 86850; 86900; 86901; 90707; 85025; J0131; J0456; J0665; J0690; J1885; J2274; J2371; J2405; J2540; J3010

== ENCOUNTER 2025-01-25 01:39 | Outpatient (RCR) | payer OTHER, SELFPAY ==
[2025-01-25] MEDS: IRON SUCROSE COMPLEX 300 MG in Normal Saline 250 ML 176.667 MG IVPB (13:52)
[2025-01-25] MEDS: Normal Saline Flush 5 ML SYR IVP (14:18)
== END 2025-02-19 23:59 | disposition home or self-care (01) ==
LOC: INF 01:39
PROVIDERS: Visit Provider Advanced Practice Midwife
DX: D64.9 Anemia, unspecified (principal)
CPT/HCPCS: 96365; 96366; J1756

== ENCOUNTER 2025-06-28 15:16 | Outpatient (CLI) | payer OTHER, SELFPAY ==
[2025-06-28 15:41] LABS: HCT 36.1 % (36.0-46.0); HGB 12.2 g/dL (11.2-15.7); MCH 29.1 pg (27.0-33.0); MCHC 33.8 % (32.0-36.0); MCV 86 fL (80-95); MPV 9.7 fL (8.0-11.0); Platelet Count 305 10^3/uL (130-400); RBC 4.19 10^6/uL (3.93-5.22); RDW 12.0 % (11.7-14.6); RDW-SD 37.9 fL; WBC 5.59 10^3/uL (4.4-10.8)
[2025-06-28 16:43] LABS: Ferritin 81 ng/mL (8-252); TSH (W/Ref FT4) 1.39 uIU/mL (0.36-3.74); Vitamin D 25 Total 38 ng/mL (30-100)
[2025-06-28 17:10] LABS: Iron 48 ug/dL (50-170); Total Iron Binding Capacity 261 ug/dL (250-450); Transferrin Sat 18 % (15-50)
== END 2025-06-28 15:17 | disposition home or self-care (01) ==
LOC: LBO 15:16
PROVIDERS: Visit Provider Obstetrics & Gynecology
DX: N93.9 Abnormal uterine and vaginal bleeding, unspecified (principal); R53.83 Other fatigue; D64.9 Anemia, unspecified; Z39.2 Encounter for routine postpartum follow-up; Z3A.28 28 weeks gestation of pregnancy
CPT/HCPCS: 36415; 82306; 85027; 82728; 83540; 83550; 84443